=== PATIENT | female | born 1970 | race Caucasian/White ===

== ENCOUNTER 2017-08-31 22:07 | Inpatient (IN) | payer BC ==
[~2017-08-31] VITALS: Ht 154.9 cm; Wt 65.6 kg
[2017-08-31 22:16] VITALS: BP 204/88; PULSE 85; TEMP 97.5; O2SAT 98
[2017-08-31 22:38] VITALS: BP 204/88; PULSE 85; RESP 18; TEMP 97.5; O2SAT 98
[2017-08-31] MEDS ORDERED: SODIUM CHLOR 0.9% 1000 ML INJ 1,000 ML IV SCH (22:42)
[2017-08-31] MEDS ORDERED: HYDROmorphone HCL PF 2 MG/ML VIAL IVS ONE (22:45)
[2017-08-31] MEDS ORDERED: SODIUM CHLORIDE 0.9% FLUSH 10 ML FLUSH IV FLUSH PRN (22:45)
[2017-08-31] MEDS ORDERED: ONDANSETRON HCL 4 MG/2 ML VIAL IVP ONE (22:45)
[2017-08-31 23:16] LABS: AUTOMATED NEUTROPHIL # 11.6 TH/MM3 (1.8-7.7); BASOPHIL # 0.4 TH/MM3 (0-0.2); BASOPHIL % 3.2 % (0.0-2.0); BLOOD, URINE NEG (NEG); EOSINOPHIL # 0.1 TH/MM3 (0-0.4); GLUCOSE,URINE NEG (NEG); HEMATOCRIT 44.9 % (35.0-46.0); KETONE, URINE 15 mg/dL (NEG); LYMPH % 8.6 % (9.0-44.0); LYMPHOCYTE # 1.2 TH/MM3 (1.0-4.8); MEAN CELL VOLUME 97.8 FL (80.0-100.0); MEAN CORPUSCULAR HEMOGLOBIN 33.6 PG (27.0-34.0); MEAN CORPUSCULAR HGB CONC 34.3 % (32.0-36.0); MONO % 3.8 % (0.0-8.0); NEUT % 83.4 % (16.0-70.0); NITRITE,URINE NEG (NEG); PLATELET COUNT 245 TH/MM3 (150-450); RED BLOOD COUNT 4.59 MIL/MM3 (4.00-5.30); RED CELL DISTRIBUTION WIDTH 12.9 % (11.6-17.2); WHITE BLOOD COUNT 13.8 TH/MM3 (4.0-11.0)
[2017-08-31 23:24] LABS: HEMO FLAGS DIFF FINAL
[2017-08-31 23:27] LABS: CHLORIDE 103 MEQ/L (98-107); POTASSIUM 3.7 MEQ/L (3.5-5.1); SODIUM (NA) 138 MEQ/L (136-145)
--- NOTE | 2017-08-31 23:28 | RADRPT ---
EXAM DATE/TIME: 08/31/2017 23:11 [facility] COMPARISON: No previous studies available for comparison. INDICATIONS : Shortness of breath. MEDICAL HISTORY : None. SURGICAL HISTORY : None. ENCOUNTER: Initial ACUITY: 1 day PAIN SCORE: 8/10 LOCATION: Bilateral chest FINDINGS: There is slight reticulonodular interstitial prominence particularly in the lung bases, chronicity un determined. No evidence of focal alveolar consolidation or pleural effusion. Cardiomediastinal contou rs are satisfactory. CONCLUSION: Slight basilar interstitial prominence of undetermined chronicity. Mario Mathur MD on August 31, 2017 at 23:25 Board Certified Radiologist. This report was verified electronically.
[2017-08-31 23:29] LABS: BACTERIA, URINE OCC /hpf; RBC, URINE 0-2 /hpf (0-3); SQUAMOUS EPITHELIAL CELL URINE > 8 /hpf (0-5); URINE COLOR YELLOW (YELLW/STRAW); WBC, URINE 0-2 /hpf (0-5)
[2017-08-31 23:30] LABS: COMMENT (UR) CULT NOT INDICATED; CULTURE IF INDICATED CULT NOT INDICATED
[2017-08-31 23:32] LABS: ANION GAP 8 MEQ/L (5-15); BICARBONATE 27.2 MEQ/L (21.0-32.0); BLOOD UREA NITROGEN 10 MG/DL (7-18); MAGNESIUM 1.8 MG/DL (1.5-2.5)
[2017-08-31 23:35] LABS: ALT (GPT) 27 U/L (10-53); AST (GOT) 17 U/L (15-37); GLOMERULAR FILTRATION RATE 107 ML/MIN (>89)
[2017-08-31 23:36] LABS: TOTAL BILIRUBIN ADULT 0.5 MG/DL (0.2-1.0)
[2017-08-31 23:38] LABS: ALKALINE PHOSPHATASE 85 U/L (45-117)
[2017-08-31 23:41] LABS: ALCOHOL LESS THAN 3 MG/DL (0-5)
--- NOTE | 2017-08-31 23:44 | PD ---
HPI Chief Complaint: Abdominal Pain Time Seen by Provider: 22:19 Travel History International Travel<30 days: No Contact w/Intl Traveler<30days: No Traveled to known affect area: No History of Present Illness HPI 47-year-old female presents to the emergency department for several days of abdominal discomfort. Patient states she initially thought it was an abdominal strain but pain is worsened significantly 24 hours with vomiting this evening. No fever no chills patient has develop nausea and vomiting. No bilious emesis no hematemesis no coffee-ground emesis. Patient denies diarrhea has had flatus. No melena or hematochezia. No prior history of abdominal pain. Patient takes no medications on a regular basis. Patient does smoke cigarettes and drinks alcohol. Pain is 8/10 intensity. PFSH Past Medical History Narrative Medical Negative past history negative surgical history positive alcohol use positive tobacco use nursing notes reviewed Medical History: Denies Significant Hx Tetanus Vaccination: > 5 Years Influenza Vaccination: No ?: Not Past Surgical History Tonsillectomy: Yes Social History Alcohol Use: Yes (2 DRINKS/DAY) Tobacco Use: Yes (1 PPD) Substance Use: No Allergies-Medications (Allergen,Severity, Reaction): Coded Allergies: No Known Allergies (Unverified , 08/31/17) Narrative Medication No medications Review of Systems Except as stated in HPI: all other systems reviewed are Neg Physical Exam Narrative GENERAL: Well-developed well-nourished female in no acute distress no respiratory distress SKIN: Warm and dry. HEAD: Normocephalic. EYES: No scleral icterus. No injection or drainage. NECK: Supple, trachea midline. No JVD or lymphadenopathy. CARDIOVASCULAR: Regular rate and rhythm without murmurs, gallops, or rubs. RESPIRATORY: Breath sounds equal bilaterally. No accessory muscle use. GASTROINTESTINAL: Abdomen soft, diffusely tender primarily periumbilical with voluntary guarding no rebound, nondistended. MUSCULOSKELETAL: No cyanosis, or edema. BACK: Nontender without obvious deformity. No CVA tenderness. Data Data Last Documented VS Vital Signs Date Time Temp Pulse Resp B/P (MAP) Pulse Ox O2 Delivery O2 Flow Rate FiO2 08/31/17 22:38 97.5 85 18 204/88 (126) 98 Orders Orders Complete Blood Count With Diff (08/31/17 22:42) Comprehensive Metabolic Panel (08/31/17 22:42) Lipase (08/31/17 22:42) Lactic Acid (08/31/17 22:42) Urinalysis - C+S If Indicated (08/31/17 22:42) Ct Abd/Pel W Iv Contrast(Rout) (08/31/17 22:42) Iv Access Insert/Monitor (08/31/17 22:42) Ecg Monitoring (08/31/17 22:42) Oximetry (08/31/17 22:42) Hydromorphone Pf Inj (Dilaudid Pf Inj) (08/31/17 22:45) Ondansetron Inj (Zofran Inj) (08/31/17 22:45) Sodium Chlor 0.9% 1000 Ml Inj (Ns 1000 M (08/31/17 22:42) Sodium Chloride 0.9% Flush (Ns Flush) (08/31/17 22:45) Electrocardiogram (08/31/17 22:42) Chest, Single Ap (08/31/17 22:42) Alcohol (Ethanol) (08/31/17 22:42) Magnesium (Mg) (08/31/17 22:42) Troponin I (08/31/17 22:42) Labs Laboratory Tests Test 08/31/17 23:00 White Blood Count 13.8 TH/MM3 Red Blood Count 4.59 MIL/MM3 Hemoglobin 15.4 GM/DL Hematocrit 44.9 % Mean Corpuscular Volume 97.8 FL Mean Corpuscular Hemoglobin 33.6 PG Mean Corpuscular Hemoglobin Concent 34.3 % Red Cell Distribution Width 12.9 % Platelet Count 245 TH/MM3 Mean Platelet Volume 8.5 FL Neutrophils (%) (Auto) 83.4 % Lymphocytes (%) (Auto) 8.6 % Monocytes (%) (Auto) 3.8 % Eosinophils (%) (Auto) 1.0 % Basophils (%) (Auto) 3.2 % Neutrophils # (Auto) 11.6 TH/MM3 Lymphocytes # (Auto) 1.2 TH/MM3 Monocytes # (Auto) 0.5 TH/MM3 Eosinophils # (Auto) 0.1 TH/MM3 Basophils # (Auto) 0.4 TH/MM3 CBC Comment DIFF FINAL Differential Comment Urine Color YELLOW Urine Turbidity CLEAR Urine pH 6.0 Urine Specific [place] 1.022 Urine Protein TRACE mg/dL Urine Glucose (UA) NEG mg/dL Urine Ketones 15 mg/dL Urine Occult Blood NEG Urine Nitrite NEG Urine Bilirubin NEG Urine Leukocyte Esterase NEG Urine RBC 0-2 /hpf Urine WBC 0-2 /hpf Urine Squamous Epithelial Cells > 8 /hpf Urine Bacteria OCC /hpf Microscopic Urinalysis Comment CULT NOT INDICATED Blood Urea Nitrogen 10 MG/DL Creatinine 0.60 MG/DL Random Glucose 105 MG/DL Total Protein 7.4 GM/DL Albumin 3.7 GM/DL Calcium Level 8.4 MG/DL Magnesium Level 1.8 MG/DL Alkaline Phosphatase 85 U/L Aspartate Amino Transf (AST/SGOT) 17 U/L Alanine Aminotransferase (ALT/SGPT) 27 U/L Total Bilirubin 0.5 MG/DL Sodium Level 138 MEQ/L Potassium Level 3.7 MEQ/L Chloride Level 103 MEQ/L Carbon Dioxide Level 27.2 MEQ/L Anion Gap 8 MEQ/L Estimat Glomerular Filtration Rate 107 ML/MIN Lactic Acid Level 0.9 mmol/L Troponin I LESS THAN 0.02 NG/ML Lipase GREATER THAN 12225 U/L Ethyl Alcohol Level LESS THAN 3 MG/DL MDM Medical Decision Making Medical Screen Exam Complete: Yes Emergency Medical Condition: Yes Medical Record Reviewed: Yes Interpretation(s) EKG: Sinus rhythm rate [address] elevation injury pattern or ectopy noted Differential Diagnosis Abdominal pain pancreatitis cholecystitis choledocholithiasis peptic ulcer disease perforated viscus colitis viral syndrome gastroenteritis Narrative Course IV access obtained specimens collected patient administered followed 1 mg IV along with Zofran 4 mg IV and normal saline bolus EKG performed sinus rhythm no acute injury pattern or ectopy or ST elevation noted Diagnosis Primary Impression: Pancreatitis Aleta Arteaga MD Aug 31, 2017 23:44
[2017-09-01] VITALS (10 sets, daily range): BP systolic 151–205; BP diastolic 81–116; PULSE 60–81; RESP 12–18; TEMP 95.5–98.8; O2SAT 92–98
[2017-09-01] MEDS ORDERED: ONDANSETRON HCL 4 MG/2 ML VIAL IV PUSH ONE
[2017-09-01] MEDS ORDERED: IOHEXOL 350 MG/ML 10 ML VIAL (for RAD DIAG) IVCONTRAST ONE (00:05)
--- NOTE | 2017-09-01 00:24 | RADRPT ---
EXAM DATE/TIME: 09/01/2017 00:01 [facility] COMPARISON: No previous studies available for comparison. INDICATIONS : Abdominal pain with nausea and vomiting for 1 week. IV CONTRAST: 96 cc Omnipaque 350 (iohexol) IV ORAL CONTRAST: No oral contrast ingested. RADIATION DOSE: 7.54 CTDIvol (mGy) MEDICAL HISTORY : None SURGICAL HISTORY : Tonsillectomy. ENCOUNTER: Initial ACUITY: 1 week PAIN SCALE: 8/10 LOCATION: abdomen TECHNIQUE: Volumetric scanning of the abdomen and pelvis was performed. Using automated exposure control and ad justment of the mA and/or kV according to patient size, radiation dose was kept as low as reasonably achievable to obtain optimal diagnostic quality images. DICOM format image data is available electro nically for review and comparison. FINDINGS: LOWER LUNGS: The visualized lower lungs are clear. LIVER: Homogeneous density without lesion. There is no dilation of the biliary tree. No calcified gallston es. SPLEEN: Normal size without lesion. PANCREAS: Edematous throughout with prominent peripancreatic inflammatory changes and fluid with extension sign ificantly down into the left anterior pararenal space and left paracolic gutter. Minimal dependent pe lvic fluid. KIDNEYS: Normal in size and shape. There is no mass, stone or hydronephrosis. ADRENAL GLANDS: Within normal limits. VASCULAR: There is no aortic aneurysm. BOWEL/MESENTERY: The stomach, small bowel, and colon demonstrate no acute abnormality. There is no free intraperitone al air or fluid. ABDOMINAL WALL: Within normal limits. RETROPERITONEUM: There is no lymphadenopathy. BLADDER: No wall thickening or mass. REPRODUCTIVE: Within normal limits. INGUINAL: There is no lymphadenopathy or hernia. MUSCULOSKELETAL: Within normal limits for patient age. CONCLUSION: Prominent findings of pancreatitis. Mario Mathur MD on September 01, 2017 at 0:17 Board Certified Radiologist. This report was verified electronically.
[2017-09-01] MEDS ORDERED: METOCLOPRAMIDE HCL 10 MG/2 ML VIAL IV PUSH ONE (00:45)
[2017-09-01] MEDS ORDERED: SODIUM CHLOR 0.9% 1000 ML INJ 1,000 ML IV ONE (00:45)
[2017-09-01] MEDS ORDERED: LORazepam 1 MG TAB PO PRN (01:15)
[2017-09-01] MEDS ORDERED: HALOPERIDOL LACTATE 5 MG/ML AMP IM PRN (01:15)
[2017-09-01] MEDS ORDERED: FLUMAZENIL 0.5 MG/5 ML VIAL IV PUSH PRN (01:15)
[2017-09-01] MEDS ORDERED: BISACODYL 10 MG SUPP RECTAL PRN (01:15)
[2017-09-01] MEDS ORDERED: ONDANSETRON HCL 4 MG/2 ML VIAL IVP PRN (01:15)
[2017-09-01] MEDS ORDERED: MAGNESIUM HYDROXIDE SUSP 30 ML CUP PO PRN (01:15)
[2017-09-01] MEDS ORDERED: LORazepam 2 MG TAB PO PRN (01:15)
[2017-09-01] MEDS ORDERED: LACTULOSE SYRUP 20 GM/30 ML CUP PO PRN (01:15)
[2017-09-01] MEDS ORDERED: LORazepam 2 MG/ML VIAL IV PUSH PRN ×4 (01:15)
[2017-09-01] MEDS ORDERED: SODIUM CHLORIDE 0.9% FLUSH 10 ML FLUSH IV FLUSH PRN (01:15)
[2017-09-01] MEDS ORDERED: SENNOSIDES 8.6 MG TAB PO PRN (01:15)
[2017-09-01] MEDS: SODIUM CHLOR 0.9% 1000 ML INJ 1,000 ML IV SCH ×3 (02:01→13:36)
[2017-09-01] MEDS: FAMOTIDINE 20 MG/2 ML VIAL IV PUSH SCH ×2 (02:20→13:38)
[2017-09-01] MEDS: MORPHINE SULFATE 2 MG/ML INJ IV PUSH PRN ×6 (07:42→22:36)
[2017-09-01] MEDS: SODIUM CHLORIDE 0.9% FLUSH 10 ML FLUSH IV FLUSH SCH ×2 (07:43→19:33)
[2017-09-01 08:32] LABS: AUTOMATED NEUTROPHIL # 12.7 TH/MM3 (1.8-7.7); BASOPHIL % 0.1 % (0.0-2.0); EOSINOPHIL % 0.1 % (0.0-4.0); HEMATOCRIT 41.9 % (35.0-46.0); HEMO FLAGS DIFF FINAL; LYMPH % 6.9 % (9.0-44.0); MEAN CELL VOLUME 98.5 FL (80.0-100.0); MEAN CORPUSCULAR HEMOGLOBIN 33.4 PG (27.0-34.0); MEAN CORPUSCULAR HGB CONC 33.9 % (32.0-36.0); MONO % 3.6 % (0.0-8.0); NEUT % 89.3 % (16.0-70.0); PLATELET COUNT 225 TH/MM3 (150-450); RED BLOOD COUNT 4.26 MIL/MM3 (4.00-5.30); RED CELL DISTRIBUTION WIDTH 12.5 % (11.6-17.2); WHITE BLOOD COUNT 14.2 TH/MM3 (4.0-11.0)
[2017-09-01] MEDS: MULTIVITAMINS/MINERALS THERAPEUTIC TAB PO SCH (08:51)
[2017-09-01] MEDS: FOLIC ACID 1 MG TAB PO SCH (08:51)
[2017-09-01] MEDS: THIAMINE HCL 100 MG TAB PO SCH (08:51)
[2017-09-01] MEDS: DOCUSATE SODIUM 50 MG/SENNA 8.6 MG TAB PO SCH ×2 (08:51→21:00)
--- NOTE | 2017-09-01 13:11 | RADRPT ---
EXAM DATE/TIME: 09/01/2017 12:04 [facility] COMPARISON: No previous studies available for comparison. INDICATIONS : Pancreatitis. MEDICAL HISTORY : Alcohol use. SURGICAL HISTORY : Tonsillectomy. ENCOUNTER: Initial ACUITY: 2 days PAIN SCORE: 9/10 LOCATION: Right upper quadrant MEASUREMENTS: LIVER: 17.5 cm length COMMON DUCT: 6 mm RIGHT KIDNEY: 10.7 x 5.3 x 6.1 cm FINDINGS: LIVER: Enlarged with several dense liver. COMMON DUCT: No intraluminal mass or stone visualized. Mild prominence of the duct. GALLBLADDER: No mobile stones. Minimal gallbladder wall thickening with adherent stone or polyp there is no tende rness of the gallbladder PANCREAS: Poorly seen, as visualized is normal. RIGHT KIDNEY: No evidence of hydronephrosis, stone, or mass. CONCLUSION: 1. Enlarged echogenic liver without ductal dilatation 2. Gallstones versus polyp in the benign-appearing gallbladder 3. Pancreas is poorly seen. 4. Mild prominence of the common duct. Osmin López MD FACR on September 01, 2017 at 13:06 Board Certified Radiologist. This report was verified electronically.
--- NOTE | 2017-09-01 16:02 | HHI.HP ---
HPI Service [facility] Primary Care Physician Mario Bailey MD Admission Diagnosis acute pancreatitis Diagnoses: Chief Complaint: Abdominal pain Travel History International Travel<30 Days: No Contact w/Intl Traveler <30 Da: No Traveled to Known Affected Are: No History of Present Illness Ms. Worrell is a pleasant 47-year-old female with no significant medical history who presents to the emergency department on 08/31/2017 due to epigastric abdominal pain. She reports that for about 2 weeks she has been having epigastric pain with radiation to the back. On 08/31/2017 she had 2 slices of cheese pizza and following that she started having significant epigastric pain and later on she had nausea and vomiting as well. She denies any fever or chills. Denies any chest pain, shortness of breath. She admits to drinking 2-3 drinks per day and smokes 1 pack a day. Denies using any illicit drugs. At the time of this interview, patient reports improvement of her abdominal pain. She actually feels like she could tolerate some light food. Review of Systems Except as stated in HPI: all other systems reviewed are Neg Past Family Social History Past Medical History No significant past medical history Past Surgical History Tonsillectomy Reported Medications Does not take any medication on a regular basis Allergies: Coded Allergies: No Known Allergies (Unverified , 08/31/17) Family History Mother with coronary artery disease Social History Patient smokes 1 pack a day. Drinks 2-3 drinks per day. Physical Exam Vital Signs Vital Signs Date Time Temp Pulse Resp B/P (MAP) Pulse Ox O2 Delivery O2 Flow Rate FiO2 09/01/17 12:00 98.2 70 14 158/84 (108) 97 09/01/17 08:00 98.1 66 14 181/90 (120) 95 09/01/17 04:00 97.1 78 16 151/87 (108) 96 09/01/17 02:00 95.5 81 18 179/93 (121) 95 09/01/17 01:58 72 09/01/17 01:56 09/01/17 01:34 60 16 187/89 (121) 96 Room Air 09/01/17 00:30 16 98 Room Air 09/01/17 00:30 18 97 Room Air 09/01/17 00:28 66 18 205/116 (145) 97 Room Air 08/31/17 23:41 18 08/31/17 22:38 97.5 85 18 204/88 (126) 98 08/31/17 22:16 97.5 85 204/88 (126) 98 Physical Exam GENERAL: This is a well-nourished, well-developed patient, in no apparent distress. SKIN: No rashes, ecchymoses or lesions. Warm and dry. HEAD: Atraumatic. Normocephalic. No temporal or scalp tenderness. EYES: Pupils equal round and reactive. No injection or drainage. ENT: Nose without bleeding, purulent drainage or septal hematoma. Airway patent. NECK: Trachea midline. No lymphadenopathy. Supple, nontender, no meningeal signs. CARDIOVASCULAR: Regular rate and rhythm without murmurs, gallops, or rubs. No JVD. RESPIRATORY: Clear to auscultation. Breath sounds equal bilaterally. No wheezes , rales, or rhonchi. GASTROINTESTINAL: Abdomen soft, epigastric tenderness on palpation, nondistended. No guarding. MUSCULOSKELETAL: Extremities without clubbing, cyanosis, or edema. NEUROLOGICAL: Awake and alert. Cranial nerves II through XII intact. No focal neurological deficits. Normal speech. Laboratory Laboratory Tests Test 08/31/17 23:00 09/01/17 08:07 White Blood Count 13.8 14.2 Red Blood Count 4.59 4.26 Hemoglobin 15.4 14.2 Hematocrit 44.9 41.9 Mean Corpuscular Volume 97.8 98.5 Mean Corpuscular Hemoglobin 33.6 33.4 Mean Corpuscular Hemoglobin Concent 34.3 33.9 Red Cell Distribution Width 12.9 12.5 Platelet Count 245 225 Mean Platelet Volume 8.5 8.5 Neutrophils (%) (Auto) 83.4 89.3 Lymphocytes (%) (Auto) 8.6 6.9 Monocytes (%) (Auto) 3.8 3.6 Eosinophils (%) (Auto) 1.0 0.1 Basophils (%) (Auto) 3.2 0.1 Neutrophils # (Auto) 11.6 12.7 Lymphocytes # (Auto) 1.2 1.0 Monocytes # (Auto) 0.5 0.5 Eosinophils # (Auto) 0.1 0.0 Basophils # (Auto) 0.4 0.0 CBC Comment DIFF FINAL DIFF FINAL Differential Comment Urine Color YELLOW Urine Turbidity CLEAR Urine pH 6.0 Urine Specific [place] 1.022 Urine Protein TRACE Urine Glucose (UA) NEG Urine Ketones 15 Urine Occult Blood NEG Urine Nitrite NEG Urine Bilirubin NEG Urine Leukocyte Esterase NEG Urine RBC 0-2 Urine WBC 0-2 Urine Squamous Epithelial Cells > 8 Urine Bacteria OCC Microscopic Urinalysis Comment CULT NOT INDICATED Blood Urea Nitrogen 10 Creatinine 0.60 Random Glucose 105 Total Protein 7.4 Albumin 3.7 Calcium Level 8.4 Magnesium Level 1.8 Alkaline Phosphatase 85 Aspartate Amino Transf (AST/SGOT) 17 Alanine Aminotransferase (ALT/SGPT) 27 Total Bilirubin 0.5 Sodium Level 138 Potassium Level 3.7 Chloride Level 103 Carbon Dioxide Level 27.2 Anion Gap 8 Estimat Glomerular Filtration Rate 107 Lactic Acid Level 0.9 Troponin I LESS THAN 0.02 Lipase GREATER THAN 26022 79092 Ethyl Alcohol Level LESS THAN 3 Triglycerides Level 57 Result Diagram: 09/01/17 0807 08/31/17 2300 Imaging Last Impressions Gall Bladder Ultrasound 09/01/17 0000 Signed Impressions: Service Date/Time: Friday, September 01, 2017 12:04 - CONCLUSION: 1. Enlarged echogenic liver without ductal dilatation 2. Gallstones versus polyp in the benign-appearing gallbladder 3. Pancreas is poorly seen. 4. Mild prominence of the common duct. Osmin López MD FACR Chest X-Ray 08/31/[id number] Signed Impressions: Service Date/Time: Thursday, August 31, 2017 23:11 - CONCLUSION: Slight basilar interstitial prominence of undetermined chronicity. Mario Mathur MD Abdomen/Pelvis CT [id number]/31/172241 Signed Impressions: Service Date/Time: Friday, September 01, 2017 00:01 - CONCLUSION: Prominent findings of pancreatitis. Maroi Mathur MD [place] VTE Risk Assessment Caprini VTE Risk Assessment: Mod/High Risk (score >= 2) Caprini Risk Assessment Model Point Value = 1 Point Value = 2 Point Value = 3 Point Value = 5 Age 41-60 Minor surgery BMI > 25 kg/m2 Swollen legs Varicose veins or History of unexplained or recurrent spontaneous Oral contraceptives or hormone replacement Sepsis (< 1 month) Serious lung disease, including pneumonia (< 1 month) Abnormal pulmonary function Acute myocardial infarction Congestive heart failure (< 1 month) History of inflammatory bowel disease Medical patient at bed rest Age 61-74 Arthroscopic surgery Major open surgery (> 45 min) Laparoscopic surgery (> 45 min) Malignancy Confined to bed (> 72 hours) Immobilizing plaster cast Central venous access Age >= 75 History of VTE Family history of VTE Factor V Leiden Prothrombin [id number] Lupus anticoagulant Anticardiolipin antibodies Elevated serum homocysteine Heparin-induced thrombocytopenia Other congenital or acquired thrombophilia Stroke (< 1 month) Elective arthroplasty Hip, pelvis, or leg fracture Acute spinal cord injury (< 1 month) Prophylaxis Regimen Total Risk Factor Score Risk Level Prophylaxis Regimen 0-1 Low Early ambulation 2 Moderate Order ONE of the following: *Sequential Compression Device (SCD) *Heparin 5000 units SQ BID 3-4 Higher Order ONE of the following medications: *Heparin 5000 units SQ TID *Enoxaparin/Lovenox 40 mg SQ daily (WT < 150 kg, CrCl > 30 mL/min) *Enoxaparin/Lovenox 30 mg SQ daily (WT < 150 kg, CrCl > 10-29 mL/min) *Enoxaparin/Lovenox 30 mg SQ BID (WT < 150 kg, CrCl > 30 mL/min) AND/OR *Sequential Compression Device (SCD) 5 or more Highest Order ONE of the following medications: *Heparin 5000 units SQ TID (Preferred with Epidurals) *Enoxaparin/Lovenox 40 mg SQ daily (WT < 150 kg, CrCl > 30 mL/min) *Enoxaparin/Lovenox 30 mg SQ daily (WT < 150 kg, CrCl > 10-29 mL/min) *Enoxaparin/Lovenox 30 mg SQ BID (WT < 150 kg, CrCl > 30 mL/min) AND *Sequential Compression Device (SCD) Assessment and Plan Problem List: (1) Acute pancreatitis ICD Code: K85.90 - Acute pancreatitis without necrosis or infection, unspecified (2) Alcohol abuse ICD Code: F10.10 - Alcohol abuse, uncomplicated (3) Tobacco abuse ICD Code: Z72.0 - Tobacco use Assessment and Plan Ms. Worrell is a pleasant 47-year-old female with no significant medical history who presents to the emergency department due to epigastric abdominal pain, nausea and vomiting. ED workup indicated acute pancreatitis with lipase level in the 30,000 range. - Acute pancreatitis - Oxycodone, morphine for pain control - Patient received IV fluid. She is now able to tolerate some fluid. Will DC IV fluid for now. - Alcohol is a potential etiology. However she does not appear to drink more than 2-3 drinks per day. Her alcohol level was less than 3 on admission. - Triglycerides 57. - Gallbladder ultrasound which shows enlarged liver, gallstones versus polyp in the benign appearing gallbladder. - Will discuss with Surgery to see if we need a surgical evaluation for possible cholecystectomy. - Hypertension - Blood pressure has been elevated. No hx of hypertension. This could be related to pain. - Will monitor. If needed, will consider CCB or CINDY inhibitor for hypertension. - Alcohol abuse - Tobacco abuse - Patient has been counseled regarding tobacco abuse. She is motivated to quit smoking. - Discussed with patient regarding alcohol - recommend abstaining from alcohol or use not more than one to 2 drinks per day. - We'll continue CIMT protocol Full code. [facility]. Physician Certification 2 Midnight Certification Type: Admission for Inpatient Services Order for Inpatient Services The services are ordered in accordance with Medicare regulations or non- Medicare payer requirements, as applicable. In the case of services not specified as inpatient-only, they are appropriately provided as inpatient services in accordance with the 2-midnight benchmark. Estimated LOS (days): 2 days is the estimated time the patient will need to remain in the hospital, assuming treatment plan goals are met and no additional complications. Post-Hospital Plan: Home Viviana Michel DO Sep 01, 2017 4:02 pm
[2017-09-01] MEDS ORDERED: ENOXAPARIN SODIUM 40 MG/0.4 ML SYRINGE SQ SCH (17:00)
[2017-09-02] VITALS: BP 151/86; PULSE 71; RESP 16; TEMP 98.4; O2SAT 96
[2017-09-02] MEDS: FAMOTIDINE 20 MG/2 ML VIAL IV PUSH SCH (01:55)
[2017-09-02] MEDS: MORPHINE SULFATE 2 MG/ML INJ IV PUSH PRN ×3 (02:01→10:23)
--- NOTE | 2017-09-02 05:12 | MB ---
cc: BHUMI CORTES MD DATE OF CONSULTATION: 09/01/2017 REASON FOR CONSULTATION Rule out gallstone pancreatitis HISTORY OF PRESENT ILLNESS The patient is a 47-year-old female who presents with acute onset of epigastric abdominal pain. She states she has been having some low grade pain for several weeks, however, in the last several days it got significantly worse. She noted having several cocktails and cheese pizza, and later noted epigastric pain, nausea, vomiting. She stated the pain progressed to 9 out of 10. Currently it is 4/10, sharp, radiation to the back, better with lying still, worse with movement. Therefore, she came to emergency department for further evaluation including lipase greater than 30,000. She also had a CT scan showing concern for pancreatitis. She had a follow-up ultrasound showing concern for gallstones versus polyp. She states is that she is an every day smoker and every day drinker, two to three drinks per day. She has never had this other than as stated, and is otherwise relatively healthy. She denies any fever or chills. PAST MEDICAL HISTORY Denies any significant medical history. PAST SURGICAL HISTORY Tonsillectomy MEDICATIONS See EMR. ALLERGIES NO KNOWN DRUG ALLERGIES. FAMILY HISTORY Mother with coronary artery disease. Denies diabetes. SOCIAL HISTORY Positive smoking one pack per day, positive ETOH, two to three cocktails per day. REVIEW OF SYSTEMS General: Denies fevers or chills. HEENT: Denies eye pain or ear pain. Neck: Denies swelling or pain. Lungs: Denies cough or wheeze. Heart: Denies palpitations or chest pain. Abdomen: Complains of nausea, vomiting, abdominal pain. : Denies dysuria, hematuria. Denies polyuria, polydipsia. Integument: Denies arthralgia, myalgia, rashes. Psych: Denies numbness or tingling. PHYSICAL EXAMINATION General: The patient in no acute distress. Vital signs: Temperature 98.3, pulse 70, respirations 14, blood pressure 158/84, saturation 97%. HEENT: Pupils equal round reactive. No scleral icterus. Neck: Supple. Trachea midline. Lungs: Clear to auscultation, bilateral expansion. Heart: S1-S2 regular rhythm. Abdomen: Soft, mild tenderness to palpation of the epigastric area. No rebound, no guarding. Extremities: Warm, well-perfused. Neurologic: 5/5 motor all extremities. GCS of 15. Psych: Appropriate mood. Appropriate judgment. LABORATORY AND DIAGNOSTIC DATA WBC 14.2, hemoglobin 14.2, hematocrit 41.9, platelets 225. Sodium 138, potassium 2.7, chloride 103, BUN 10, creatinine 0.6, lactate 0.9, AST 17, ALT 27, lipase initial greater than 30,000, currently 17,165. ASSESSMENT The patient is a 47-year-old female with acute pancreatitis, concern for gallstone versus ETOH etiology. PLAN After full clinical radiologic and laboratory workup, patient with the above-named issues including acute pancreatitis, at this point recommend medical management as above including IV fluids, bowel rest, pain control, hydration and continue to monitor and trend enzyme levels. The patient does have concerning potential gallstones. No evidence of choledocholithiasis, however, will obtain MRCP for further delineation and rule out any sort of common duct stones. If this is completely negative, may more likely be ETOH related, however, if there are multiple stones, would consider laparoscopic cholecystectomy. Will continue to follow. Thank you for the consultation. MD MARIFER Short/CAL /11:01 PM /4:01 AM
--- NOTE | 2017-09-02 07:03 | HHI.PR ---
Subjective Subjective Notes no acute issues, pain is improving, no fever Objective Vitals/I&O Vital Signs Date Time Temp Pulse Resp B/P (MAP) Pulse Ox O2 Delivery O2 Flow Rate FiO2 09/02/17 00:00 98.4 71 16 151/86 (107) 96 09/01/17 01:34 Room Air Labs Laboratory Tests Test 09/01/17 08:07 White Blood Count 14.2 Red Blood Count 4.26 Hemoglobin 14.2 Hematocrit 41.9 Mean Corpuscular Volume 98.5 Mean Corpuscular Hemoglobin 33.4 Mean Corpuscular Hemoglobin Concent 33.9 Red Cell Distribution Width 12.5 Platelet Count 225 Mean Platelet Volume 8.5 Neutrophils (%) (Auto) 89.3 Lymphocytes (%) (Auto) 6.9 Monocytes (%) (Auto) 3.6 Eosinophils (%) (Auto) 0.1 Basophils (%) (Auto) 0.1 Neutrophils # (Auto) 12.7 Lymphocytes # (Auto) 1.0 Monocytes # (Auto) 0.5 Eosinophils # (Auto) 0.0 Basophils # (Auto) 0.0 CBC Comment DIFF FINAL Differential Comment Triglycerides Level 57 Lipase 30841 Abdomen: Other (soft epigastric tenderness) A/P Assessment and Plan pancreatitis gallstone vs etoh plan await mrcp trend labs possible lap lisa this hospital stay vs in 6-8 weeks pending mrcp results Bandar Altamirano MD Sep 02, 2017 07:03
[2017-09-02 07:19] LABS: AUTOMATED NEUTROPHIL # 11.2 TH/MM3 (1.8-7.7); BASOPHIL % 0.3 % (0.0-2.0); EOSINOPHIL # 0.1 TH/MM3 (0-0.4); EOSINOPHIL % 0.9 % (0.0-4.0); HEMATOCRIT 38.5 % (35.0-46.0); HEMO FLAGS DIFF FINAL; LYMPH % 10.8 % (9.0-44.0); LYMPHOCYTE # 1.5 TH/MM3 (1.0-4.8); MEAN CELL VOLUME 98.5 FL (80.0-100.0); MEAN CORPUSCULAR HEMOGLOBIN 33.4 PG (27.0-34.0); MEAN CORPUSCULAR HGB CONC 33.9 % (32.0-36.0); MONO % 5.4 % (0.0-8.0); NEUT % 82.6 % (16.0-70.0); PLATELET COUNT 197 TH/MM3 (150-450); RED BLOOD COUNT 3.91 MIL/MM3 (4.00-5.30); RED CELL DISTRIBUTION WIDTH 12.7 % (11.6-17.2); WHITE BLOOD COUNT 13.5 TH/MM3 (4.0-11.0)
[2017-09-02 07:33] LABS: CHLORIDE 105 MEQ/L (98-107); SODIUM (NA) 140 MEQ/L (136-145)
[2017-09-02 07:54] LABS: ALKALINE PHOSPHATASE 70 U/L (45-117); ALT (GPT) 16 U/L (10-53); ANION GAP 8 MEQ/L (5-15); AST (GOT) 11 U/L (15-37); BICARBONATE 27.2 MEQ/L (21.0-32.0); BLOOD UREA NITROGEN 6 MG/DL (7-18); GLOMERULAR FILTRATION RATE 138 ML/MIN (>89); TOTAL BILIRUBIN ADULT 0.6 MG/DL (0.2-1.0)
[2017-09-02 08:00] VITALS: BP 143/78; PULSE 76; RESP 18; TEMP 99; O2SAT 95
[2017-09-02] MEDS ORDERED: LORazepam 2 MG/ML VIAL IV PUSH ONE (09:00)
--- NOTE | 2017-09-02 09:36 | RADRPT ---
EXAM DATE/TIME: 09/02/2017 09:06 [place] COMPARISON: CT ABDOMEN & PELVIS W CONTRAST, September 01, 2017, 0:01. INDICATIONS : Pancreatitis. MEDICAL HISTORY : None. SURGICAL HISTORY : Tonsillectomy. ENCOUNTER: Initial ACUITY: 2 day PAIN SCORE: 3/10 LOCATION: Right upper quadrant TECHNIQUE: Multiplanar, multisequence magnetic resonance imaging of the abdomen was performed. High-resolution 3D dataset was utilized to reconstruct maximum-intensity projection (MIP) images. FINDINGS: There is no intrahepatic biliary duct dilatation. I do not see obvious gallstone or polyp in the gal lbladder Common duct is normal in size. There is some artifact within the common duct. Cannot entirely exclu de common duct stone. There is mild edema in the pancreas with very minimal peripancreatic fluid. This would be consistent with pancreatitis Kidneys unremarkable CONCLUSION: 1. Mild pancreatitis 2. I cannot confirm gallstones by ultrasound 3. Cannot entirely exclude common duct stone. The duct is normal in size. Minimal apparent artifact is present in the common duct Osmin López MD FACR on September 02, 2017 at 9:30 Board Certified Radiologist. This report was verified electronically.
[2017-09-02] MEDS ORDERED: DILA2TAB4 PO (10:10)
[2017-09-02] MEDS ORDERED: FOLI1TAB6 PO (10:10)
[2017-09-02] MEDS ORDERED: THIA100 PO (10:10)
[2017-09-02] MEDS: THIAMINE HCL 100 MG TAB PO SCH (10:12)
[2017-09-02] MEDS: MULTIVITAMINS/MINERALS THERAPEUTIC TAB PO SCH (10:12)
[2017-09-02] MEDS: DOCUSATE SODIUM 50 MG/SENNA 8.6 MG TAB PO SCH (10:13)
[2017-09-02] MEDS: FOLIC ACID 1 MG TAB PO SCH (10:22)
--- NOTE | 2017-09-02 12:28 | HHI.PR ---
Subjective Remarks Follow-up for acute pancreatitis. Patient is currently doing well. She has epigastric pain but has subsided. She is tolerating diet well. We'll advance diet. No fever or chills. She is drinking fluid well. Objective Vitals Vital Signs Date Time Temp Pulse Resp B/P (MAP) Pulse Ox O2 Delivery O2 Flow Rate FiO2 09/02/17 08:00 99.0 76 18 143/78 (99) 95 09/02/17 00:00 98.4 71 16 151/86 (107) 96 09/01/17 20:46 98.0 74 16 171/81 (111) 93 09/01/17 16:00 98.8 76 12 158/86 (110) 92 I/O 09/01/17 09/01/17 09/01/17 09/02/17 09/02/17 09/02/17 07:00 15:00 23:00 07:00 15:00 23:00 Intake Total 2480 ml 480 ml Balance 2480 ml 480 ml Intake Oral 480 ml 480 ml IV Total 2000 ml # Voids 2 9 1 # Bowel Movements 0 0 Result Diagram: 09/02/17 0700 09/02/17 0700 Imaging Last Impressions Cholangiopancreatography MRI 09/02/17 0000 Signed Impressions: Service Date/Time: Saturday, September 02, 2017 09:06 - CONCLUSION: 1. Mild pancreatitis 2. I cannot confirm gallstones by ultrasound 3. Cannot entirely exclude common duct stone. The duct is normal in size. Minimal apparent artifact is present in the common duct Osmin López MD FACR Gall Bladder Ultrasound 09/01/17 0000 Signed Impressions: Service Date/Time: Friday, September 01, 2017 12:04 - CONCLUSION: 1. Enlarged echogenic liver without ductal dilatation 2. Gallstones versus polyp in the benign-appearing gallbladder 3. Pancreas is poorly seen. 4. Mild prominence of the common duct. Osmin López MD FACR Chest X-Ray 08/31/172241 Signed Impressions: Service Date/Time: Thursday, August 31, 2017 23:11 - CONCLUSION: Slight basilar interstitial prominence of undetermined chronicity. Mario Mathur MD Abdomen/Pelvis CT 08/31/172241 Signed Impressions: Service Date/Time: Friday, September 01, 2017 00:01 - CONCLUSION: Prominent findings of pancreatitis. Mario Mathur MD Objective Remarks GENERAL: Alert, oriented 3, NAD. SKIN: Warm and dry. HEAD: Normocephalic. EYES: No scleral icterus. No injection or drainage. NECK: Supple, trachea midline. No JVD or lymphadenopathy. CARDIOVASCULAR: Regular rate and rhythm without murmurs, gallops, or rubs. RESPIRATORY: Breath sounds equal bilaterally. No accessory muscle use. GASTROINTESTINAL: Abdomen soft, mild tenderness on palpation over epigastric area, nondistended. MUSCULOSKELETAL: No cyanosis, or edema. BACK: Nontender without obvious deformity. No CVA tenderness. Procedures None A/P Problem List: (1) Acute pancreatitis ICD Code: K85.90 - Acute pancreatitis without necrosis or infection, unspecified (2) Alcohol abuse ICD Code: F10.10 - Alcohol abuse, uncomplicated (3) Tobacco abuse ICD Code: Z72.0 - Tobacco use Assessment and Plan Ms. Worrell is a pleasant 47-year-old female with no significant medical history who presents to the emergency department due to epigastric abdominal pain, nausea and vomiting. ED workup indicated acute pancreatitis with lipase level in the 30,000 range. - Acute pancreatitis - Oxycodone, morphine for pain control - Patient tolerating diet well. Will advance diet to regular. - Alcohol is a potential etiology. However she does not appear to drink more than 2-3 drinks per day. Her alcohol level was less than 3 on admission. - Triglycerides 57. - Gallbladder ultrasound which shows enlarged liver, gallstones versus polyp in the benign appearing gallbladder. - MRCP indicates normal CBD but gallstone in CBD could not be completely ruled out. - Appreciate Dr. Altamirano's input (Gen Surgery). If indicated, we will keep patient for Cholecystectomy during this admission. - If Cholecystectomy is not needed urgently, - Hypertension - Blood pressure is improved. 143/78 last BP. - Alcohol abuse - Tobacco abuse - Patient has been counseled regarding tobacco abuse. She is motivated to quit smoking. - Discussed with patient regarding alcohol - recommend abstaining from alcohol or use not more than one to 2 drinks per day. - We'll continue CIWA protocol Full code. Olga. Viviana Michel DO Sep 02, 2017 12:28 pm
--- NOTE | 2017-09-03 09:36 | EKG ---
Date Performed: 08/31/2017 Time Performed: 23:38:13 PTAGE: 47 years EKG: SINUS BRADYCARDIA BORDERLINE ECG NO PREVIOUS TRACING DOCTOR: Cristiano Rodas Interpretating Date/Time 09/03/2017 09:34:52
== END 2017-09-02 14:09 | disposition home or self-care (01) | DRG 440 ==
LOC: PHED 22:07 → PHEDA 09-01 00:52 → PH3B 09-01 01:50
PROVIDERS: ADMIT Hospitalist; ATTEND Hospitalist
DX: K85.90 Acute pancreatitis without necrosis or infection, unspecified (principal); I10 Essential (primary) hypertension; F10.10 Alcohol abuse, uncomplicated; F17.210 Nicotine dependence, cigarettes, uncomplicated; Y90.0 Blood alcohol level of less than 20 mg/100 ml
CPT/HCPCS: 71010; 74177; 74181; 76377; 76705; 80053; 80307; 81001; 82948; 83605; 83690; 83735; 84478; 84484; 85025; 93005; 96361; 96374; 96375; 96376; J1170; J2270; J2405; J2765; J7030; Q9967